=== PATIENT | female | born 2000 | race Caucasian/White ===

== ENCOUNTER 2025-02-01 10:26 | Outpatient (CLI) | payer BC, SELFPAY ==
[2025-02-01 18:30] LABS: Basophils % 0.4 % (0.1-2.0); Eosinophils # 0.1 Kmm3 (0.0-0.4); Eosinophils % 1.4 % (0.1-12.0); Hematocrit 40.9 % (37.0-47.0); Hemoglobin 13.6 g/dL (12.2-16.2); Immature Granulocytes # 0.03 10^3uL; Immature Granulocytes % 0.4 %; Lymphocytes # 2.3 K/mm3 (0.7-4.5); Mean Corpuscular HGB Conc 33.3 g/dL (31.8-35.4); Mean Corpuscular Hemoglobin 28.9 pg (27.0-31.2); Mean Platelet Volume 11.9 fl (7.4-10.4); Monocytes # 0.6 K/mm3 (0.1-1.0); Monocytes % 7.5 % (1.7-9.3); Neutrophils # 4.9 K/mm3 (1.8-7.8); Neutrophils % 61.3 % (37.0-80.0); Nucleated Red Blood Cells # 0 10^3/uL; Nucleated Red Blood Cells % 0 %; Platelet Count 230 K/mm3 (142-424); Red Cell Distribution Width 12.8 % (11.5-17.5); Red Cell Distribution Width-SD 40.3 fL
[2025-02-01 19:20] LABS: Alanine Aminotransferase 76 U/L (12-78); Albumin/Globulin Ratio 1.3 (1.1-1.8); Alkaline Phosphatase 63 U/L (38-126); Anion Gap 6.7 mEq/L (5-15); Aspartate Amino Transferase 58 U/L (14-36); Bilirubin,Total 0.7 mg/dl (0.2-1.3); Blood Urea Nitrogen 11 mg/dl (7-17); Calcium 9.6 mg/dl (8.4-10.2); Carbon Dioxide 28 mmol/L (22.0-30.0); Chloride 106 mmol/L (98-107); Chol/HDL Ratio 2.4 (1-3.5); Cholesterol 114 mg/dl (140-200); Estimated Glomerular Filt Rate 78 ml/min (>60); GFR (African American) 94 ML/MIN (>60); Glucose 99 mg/dl (74-100); HDL Cholesterol 48 mg/dl (40-60); Potassium 4.7 mmoL/L (3.5-5.1); Sodium 136 mmol/L (136-145); Triglycerides 50 mg/dl (30-150); VLDL Cholesterol 10 mg/dL (0-40)
[2025-02-01 19:31] LABS: Direct LDL Cholesterol 37.28 mg/dL (100-129)
[2025-02-01 19:51] LABS: Thyroid Stimulating Hormone 0.81 uIU/mL (0.465-4.68)
[2025-02-01 20:02] LABS: HIV Combo NEGATIVE (Negative)
[2025-02-01 20:08] LABS: Hemoglobin A1C 6.1 % (4.0-6.0)
[2025-02-01 20:10] LABS: Vitamin B12 639 pg/mL (239-931)
[2025-02-01 20:11] LABS: Hepatitis C Ab Qual. W/ RFX NEGATIVE (Negative)
[2025-02-03 05:10] LABS: Hepatitis B Surface Antigen Negative (Negative)
--- OUTSIDE RECORDS SUMMARY | 2025-02-03 10:31 | XMS_ITS | Clinical Summary ---
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 Name Role Phone Unavailable Primary Care Provider Unavailabl e Allergies No known active allergies Medications No known medications Active Problems No known active problems Social History Tobacco Use Types Packs/Day Years Used Date Smoking Tobacco: Never Smokeless Tobacco: Never Intimate Partner Violence Answer Date R ecorded Insults You Not on file 11/22/2020 Threatens You Not on file 11/22/2020 Screams at You Not on file 11/22/2020 Physically Hurt Not on file 11/22/2020 Intimate Partner Violence Score Not on file 11/22/2020 Stress Answer Date Recorded Stress in your Life Not on file 06/15/2024 Dealing with Stress 3 06/15/2024 Comments Unknown Sex and Gender Information Value Date Recorded Sex Assigned at Not on file Legal Sex Female 7:30 AM CDT Gender Identity Not on file Sexual Orientation Not on file Plan of Treatment Health Maintenance Due Date Last Done Comments Dental Cleaning/Exam 2001 HIV Screening 2001 Hepatitis C Screening 2001 HPV Immunization (1 - 3-dose series) 2016 Cervical Cancer Screening 2017 Men B Immunization (1 of 2 - Standard) 2017 Annual Preventive Exam 2019 Hep B Infection Screening - Triple Screen 2019 Hepatitis B Immunization (1 of 3 - 19+ 3-dose series) 2020 Tetanus Diphtheria and Pertu ssis Immunization (1 - Tdap) 2020 Covid-19 Immunization (1 - 2 024-25 season) 2024 Influenza Immunization (Seas on Ended) 2025 HIB Immunization Aged Out No longer e ligible based on patient's age to complete this topic Hepatitis A Immunization Aged Out No longer eligible based on patient's age to complete this topic Meningococcal Immunization Aged Out N o longer eligible based on patient's age to complete this topic Pneumococcal: Ped (0 to 5 Yr s) and At-Risk Member (6 to 64 Yrs) Aged Out No longer e ligible based on patient's age to complete this topic Polio Immunization Aged Out No longer eligible based on patient's age to complete this topic Varicella Immunization Aged Out No lo nger eligible based on patient's age to complete this topic
== END 2025-02-01 23:59 | disposition home or self-care (01) ==
LOC: LAB.DROPOF 02-03 10:26
PROVIDERS: PCP Nurse Practitioner; Visit Provider Nurse Practitioner
DX: E66.9 Obesity, unspecified (principal); G43.909 Migraine, unspecified, not intractable, without status migrainosus; K21.9 Gastro-esophageal reflux disease without esophagitis; Z13.1 Encounter for screening for diabetes mellitus; Z13.220 Encounter for screening for lipoid disorders; Z13.0 Encounter for screening for diseases of the blood and blood-forming organs and certain disorders involving the immune mechanism
CPT/HCPCS: 80053; 80061; 82306; 82607; 83036; 84443; 85025; 86803; 87340; 87389

== ENCOUNTER 2025-05-18 12:10 | Outpatient (CLI) | payer BC, SELFPAY ==
[2025-05-18 17:29] LABS: Alanine Aminotransferase 62 U/L (12-78); Albumin Level 3.9 g/dl (3.5-5.0); Albumin/Globulin Ratio 1.4 (1.1-1.8); Alkaline Phosphatase 73 U/L (38-126); Anion Gap 12.4 mEq/L (5-15); Aspartate Amino Transferase 47 U/L (14-36); Bilirubin,Total 0.9 mg/dl (0.2-1.3); Blood Urea Nitrogen 5 mg/dl (7-17); Calcium 9.1 mg/dl (8.4-10.2); Carbon Dioxide 27 mmol/L (22.0-30.0); Chloride 104 mmol/L (98-107); Creatinine,Serum 0.90 mg/dl (0.52-1.04); Estimated Glomerular Filt Rate 78 ml/min (>60); GFR (African American) 94 ML/MIN (>60); Globulin 2.7 g/dL (1.3-3.2); Glucose 54 mg/dl (74-100); Potassium 4.4 mmoL/L (3.5-5.1); Sodium 139 mmol/L (136-145); Total Protein,Serum 6.6 g/dl (6.3-8.2)
[2025-05-18 17:56] LABS: Thyroid Stimulating Hormone 0.21 uIU/mL (0.465-4.68)
[2025-05-18 19:44] LABS: 25-OH Vitamin D, Total 55.3 ng/mL (30-100)
== END 2025-05-18 23:59 ==
LOC: LAB.DROPOF 05-20 12:10
PROVIDERS: PCP Nurse Practitioner; Visit Provider Nurse Practitioner
DX: E55.9 Vitamin D deficiency, unspecified (principal); E66.9 Obesity, unspecified
CPT/HCPCS: 80053; 82306; 84443